=== PATIENT | female | born 1945 | race Asian ===

== ENCOUNTER 2023-01-06 10:05 | Inpatient (IN) | payer OTHER ==
[~2023-01-06] VITALS: Ht 154.9 cm; Wt 57.5 kg
[2023-01-06] MEDS ORDERED: methylPREDNISolone SOD SUCC 40 MG/ML VL IV ONE (10:15)
[2023-01-06] MEDS ORDERED: ALBUTEROL SULF 2.5 MG/0.5ML(0.5%) NEB SOLN NEB ONE (10:15)
[2023-01-06 11:06] LABS: Basophils # (auto) 0 10 ^3/uL (0-0.2); Basophils % (auto) 0.4 % (0.0-2.0); Eosinophils # (auto) 0.1 10 ^3/uL (0-0.8); Eosinophils % (auto) 1.1 % (0.0-7.0); Hematocrit 41.2 % (36.0-46.0); Hemoglobin 13.3 g/dL (12.2-16.2); Lymphocytes # (auto) 1.8 10 ^3/uL (0.4-5.4); Lymphocytes % (auto) 19.6 % (10.0-50.0); Mean Corpuscular Hemoglobin 29.2 pg (28.0-32.0); Mean Corpuscular Hgb Conc. 32.2 g/dL (32.0-36.0); Mean Corpuscular Volume 90.8 fL (80.0-100.0); Monocytes # (auto) 0.5 10 ^3/uL (0-1.3); Monocytes % (auto) 5.3 % (0.0-12.0); Neutrophils # (auto) 6.8 10 ^3/uL (1.6-8.6); Neutrophils % (auto) 73.6 % (37.0-80.0); Red Blood Cells 4.54 10^6/uL (4.0-5.20); Red Cell Distribution Width 13.2 % (11.8-14.3); White Blood Cell 9.3 10^3/uL (4.4-10.8)
[2023-01-06 11:24] LABS: Alanine Aminotransferase 13 U/L (7-40); Alkaline Phosphatase 55 U/L (46-116); Anion Gap 12 (5-15); Aspartate Aminotransferase 22 U/L (13-40); Blood Urea Nitrogen 21 mg/dL (9-23); Calcium 9.2 mg/dL (8.7-10.4); Carbon Dioxide 22 mmol/L (20-30); Chloride 109 mmol/L (98-107); Glucose 131 mg/dL (74-106); Potassium 3.8 mmol/L (3.5-5.1); Sodium 143 mmol/L (136-145)
[2023-01-06 11:25] LABS: Albumin 4.4 g/dL (3.2-4.8); Bilirubin, Total 0.4 mg/dL (0.2-1.0); Total Protein 7.2 g/dL (5.7-8.2)
[2023-01-06 11:40] VITALS: PULSE 108; RESP 25; O2SAT 99
[2023-01-06] MEDS ORDERED: ASPirin 325 MG TAB PO ONE (11:45)
[2023-01-06] MEDS ORDERED: ENOXAPARIN SOD 60 MG/0.6 ML SYRINGE SC ONE (11:45)
[2023-01-06] MEDS ORDERED: IOHEXOL 350 MG/ML 100ML IJ ONE (11:58)
[2023-01-06] MEDS ORDERED: ASPirin 81 mg TAB PO ONE (15:00)
[2023-01-06] MEDS ORDERED: FUROSEMIDE 40 MG/4 ML VIAL IV ONE (15:00)
[2023-01-06] MEDS ORDERED: ATORVASTATIN 20 MG TAB PO ONE (15:00)
[2023-01-06] MEDS ORDERED: METOPROLOL TARTRATE 1MG/1ML-5ML VIAL IV ONE (17:15)
[2023-01-06] MEDS ORDERED: MORPHINE SULFATE 4 MG/ML SYR/VIAL IV PRN (17:45)
[2023-01-06] MEDS ORDERED: ONDANSETRON HCL 4 MG/2 ML VIAL IV PRN (17:45)
[2023-01-06] MEDS ORDERED: ACETAMINOPHEN 325 MG TAB PO PRN (17:45)
[2023-01-06] MEDS ORDERED: NITROGLYCERIN 0.4 MG SL TAB SL PRN (17:45)
[2023-01-06] MEDS ORDERED: DIGOXIN 0.25 MG TAB PO ONE (17:45)
[2023-01-06] MEDS: FUROSEMIDE 20 MG/2 ML VIAL IV SCH (18:00)
[2023-01-06 18:56] LABS: Urine Bacteria NONE SEEN /hpf (None Seen); Urine Blood TRACE /uL (Negative); Urine Clarity Clear (Clear); Urine Color Yellow (Yellow); Urine Mucus FEW (None Seen); Urine Protein, UAD 2+ (Negative); Urine Urobilinogen Normal (Negative); Urine WBC 4 /hpf (0 - 5); Urine pH 5.5 (5.0-8.0)
[2023-01-06 19:05] LABS: INR 1.03 (0.9-1.15); Prothrombin Time 10.8 sec (9.3-11.8)
[2023-01-06 19:23] VITALS: PULSE 88; RESP 19; O2SAT 98
[2023-01-06 21:47] VITALS: BP 115/58; PULSE 96; RESP 19; TEMP 98; O2SAT 98
[2023-01-06] MEDS ORDERED: ENOXAPARIN SOD 60 MG/0.6 ML SYRINGE SC SCH (22:00)
[2023-01-06] MEDS: METOPROLOL TARTRATE 25 MG TAB PO SCH (22:19)
[2023-01-06] MEDS: ATORVASTATIN 20 MG TAB PO SCH (22:19)
[2023-01-06] MEDS: ENOXAPARIN SOD 60 MG/0.6 ML SYRINGE SC SCH (22:20)
[2023-01-06 22:25] VITALS: BP 115/58; PULSE 96; RESP 19; TEMP 98; O2SAT 98
[2023-01-07] VITALS (8 sets, daily range): BP systolic 85–109; BP diastolic 45–62; PULSE 70–81; RESP 16–18; TEMP 97.6–98.8; O2SAT 98–99
[2023-01-07] MEDS ORDERED: ATOR10TA PO (00:23)
[2023-01-07] MEDS ORDERED: SACU1TAB PO (00:23)
[2023-01-07] MEDS ORDERED: DIGO0.12 PO (00:23)
[2023-01-07] MEDS ORDERED: ISOS10TA5 PO (00:23)
[2023-01-07] MEDS ORDERED: METO25TA5 PO (00:23)
[2023-01-07] MEDS ORDERED: FURO1TAB33 PO (00:23)
[2023-01-07] MEDS ORDERED: SPIR50TA5 PO (00:23)
[2023-01-07] MEDS ORDERED: CLOP75TA70 PO (00:23)
[2023-01-07] MEDS: FUROSEMIDE 20 MG/2 ML VIAL IV SCH (06:30)
[2023-01-07] MEDS: DIGOXIN 0.25 MG TAB PO SCH (09:24)
[2023-01-07] MEDS: DOCUSATE SOD 100 MG CAP PO SCH (09:24)
[2023-01-07] MEDS: ENOXAPARIN SOD 60 MG/0.6 ML SYRINGE SC SCH ×2 (09:24→22:00)
[2023-01-07] MEDS: ASPirin 81 mg TAB PO SCH (09:25)
[2023-01-07] MEDS: METOPROLOL TARTRATE 25 MG TAB PO SCH ×2 (09:25→22:02)
[2023-01-07 11:38] LABS: Triglycerides 148 mg/dL (< 150)
[2023-01-07 11:39] LABS: LDL Cholesterol 95 mg/dL (< 100)
[2023-01-07 11:40] LABS: Cholesterol 143 mg/dL (< 200); HDL Cholesterol 41 mg/dL (40-59)
[2023-01-07] MEDS: ATORVASTATIN 20 MG TAB PO SCH (22:00)
[2023-01-08] VITALS (12 sets, daily range): BP systolic 105–134; BP diastolic 50–76; PULSE 74–96; RESP 19–24; TEMP 97.6–98.7; O2SAT 95–100
[2023-01-08] MEDS ORDERED: ALBUTEROL SULF 2.5 MG/0.5ML(0.5%) NEB SOLN NEB PRN (03:30)
[2023-01-08 05:38] LABS: Chloride 106 mmol/L (98-107); Sodium 139 mmol/L (136-145)
[2023-01-08 05:39] LABS: Anion Gap 6 (5-15); Calcium 9.7 mg/dL (8.7-10.4); Carbon Dioxide 27 mmol/L (20-30)
[2023-01-08 05:44] LABS: BUN/Creatinine Ratio 40.6 (10.0-20.0); Blood Urea Nitrogen 28 mg/dL (9-23); Glucose 117 mg/dL (74-106)
[2023-01-08] MEDS ORDERED: FUROSEMIDE 20 MG/2 ML VIAL IV ONE (06:30)
[2023-01-08] MEDS: DOCUSATE SOD 100 MG CAP PO SCH (09:28)
[2023-01-08] MEDS: METOPROLOL TARTRATE 25 MG TAB PO SCH ×2 (09:28→21:45)
[2023-01-08] MEDS: CLOPIDOGREL BISULFATE 75 MG TAB PO SCH (09:29)
[2023-01-08] MEDS: ASPirin 81 mg TAB PO SCH (09:29)
[2023-01-08] MEDS: DIGOXIN 0.25 MG TAB PO SCH (09:29)
[2023-01-08] MEDS: ENOXAPARIN SOD 60 MG/0.6 ML SYRINGE SC SCH ×2 (09:30→21:45)
[2023-01-08] MEDS: PATIENTS OWN MEDICATION (Atorvastatin Calcium (Lipitor) 10 MG) PO SCH (09:31)
[2023-01-08] MEDS ORDERED: FUROSEMIDE 20 MG TAB PO SCH (10:00)
[2023-01-08 17:29] LABS: Free T3 2.35 pg/mL (2.3-4.2); Free T4 (Free Thyroxine) 1.31 ng/dL (0.89-1.76)
[2023-01-08 19:32] LABS: Base Excess 5.1 mmol/L (-2.0-2.0)
[2023-01-08] MEDS: ATORVASTATIN 20 MG TAB PO SCH (21:44)
[2023-01-09] VITALS (12 sets, daily range): BP systolic 98–114; BP diastolic 53–60; PULSE 67–84; RESP 16–18; TEMP 97.5–98.6; O2SAT 95–99
[2023-01-09] MEDS: DIGOXIN 0.25 MG TAB PO SCH (09:32)
[2023-01-09] MEDS: METOPROLOL TARTRATE 25 MG TAB PO SCH ×2 (09:32→22:02)
[2023-01-09] MEDS: DOCUSATE SOD 100 MG CAP PO SCH (09:32)
[2023-01-09] MEDS: CLOPIDOGREL BISULFATE 75 MG TAB PO SCH (09:32)
[2023-01-09] MEDS: ASPirin 81 mg TAB PO SCH (09:32)
[2023-01-09] MEDS: ENOXAPARIN SOD 60 MG/0.6 ML SYRINGE SC SCH ×2 (09:33→22:06)
[2023-01-09] MEDS: FUROSEMIDE 20 MG/2 ML VIAL IV SCH (09:33)
[2023-01-09] MEDS: PATIENTS OWN MEDICATION (Atorvastatin Calcium (Lipitor) 10 MG) PO SCH (09:39)
[2023-01-09] MEDS: ATORVASTATIN 20 MG TAB PO SCH (21:56)
[2023-01-10 05:00] VITALS: BP 104/64; PULSE 71; RESP 18; TEMP 97.5; O2SAT 97
[2023-01-10 06:10] VITALS: O2SAT 96
[2023-01-10] MEDS: ENOXAPARIN SOD 60 MG/0.6 ML SYRINGE SC SCH (09:30)
[2023-01-10] MEDS: DOCUSATE SOD 100 MG CAP PO SCH (09:30)
[2023-01-10] MEDS: DIGOXIN 0.25 MG TAB PO SCH (09:31)
[2023-01-10] MEDS: CLOPIDOGREL BISULFATE 75 MG TAB PO SCH (09:31)
[2023-01-10] MEDS: ASPirin 81 mg TAB PO SCH (09:31)
[2023-01-10] MEDS: METOPROLOL TARTRATE 25 MG TAB PO SCH (09:32)
[2023-01-10] MEDS: FUROSEMIDE 20 MG/2 ML VIAL IV SCH (09:32)
[2023-01-10] MEDS: PATIENTS OWN MEDICATION (Atorvastatin Calcium (Lipitor) 10 MG) PO SCH (09:33)
[2023-01-10 10:00] VITALS: O2SAT 97
[2023-01-10 13:00] VITALS: BP 93/52; PULSE 76; RESP 18; TEMP 97.6; O2SAT 94
[2023-01-10 15:13] VITALS: BP 116/53; PULSE 79; TEMP 36.4
[2023-01-10 16:34] VITALS: BP 101/54; PULSE 72; RESP 16; TEMP 98; O2SAT 96
== END 2023-01-10 18:30 | disposition home or self-care (01) | DRG 280 ==
LOC: EDBD 10:05 → ER 10:05 → TELE 17:53 → TELE-WESTW 21:43
PROVIDERS: ADMIT Nurse Practitioner Family; ATTEND Nurse Practitioner Acute Care
DX: I11.0 Hypertensive heart disease with heart failure (principal); I21.A1 Myocardial infarction type 2; I50.43 Acute on chronic combined systolic (congestive) and diastolic (congestive) heart failure; J96.01 Acute respiratory failure with hypoxia; E07.9 Disorder of thyroid, unspecified; E78.5 Hyperlipidemia, unspecified; I48.91 Unspecified atrial fibrillation; I25.2 Old myocardial infarction; G47.30 Sleep apnea, unspecified
CPT/HCPCS: 36415; 36600; 71045; 71046; 71275; 76536; 80048; 80053; 80061; 80162; 81001; 82805; 83735; 83880; 84439; 84443; 84481; 84484; 85025; 85379; 85610; 93005; 93306; 94640; 96372; 96374; 96375; 99291; G0378

== ENCOUNTER 2023-06-04 20:02 | Emergency (ER) | payer MEDICAID, OTHER ==
[~2023-06-04] VITALS: Ht 154.9 cm; Wt 55.0 kg
[~2023-06-04 20:02] MED LIST: ATOR10TA PO; CLOP75TA70 PO; DIGO0.12 PO; FURO1TAB33 PO; ISOS10TA5 PO; METO25TA5 PO; SACU1TAB PO; SPIR50TA5 PO
[2023-06-04 20:32] VITALS: BP 130/63; RESP 18; O2SAT 96
[2023-06-04 20:36] VITALS: PULSE 94
[2023-06-04] MEDS ORDERED: DIGO0.12 PO (22:09)
[2023-06-04] MEDS ORDERED: METO25TA5 PO (22:09)
[2023-06-04] MEDS ORDERED: FURO1TAB33 PO (22:09)
[2023-06-04] MEDS ORDERED: SACU1TAB PO (22:09)
[2023-06-04] MEDS ORDERED: ISOS10TA5 PO (22:09)
[2023-06-04] MEDS ORDERED: ATOR10TA PO (22:09)
[2023-06-04] MEDS ORDERED: CLOP75TA70 PO (22:09)
== END 2023-06-05 02:35 | disposition home or self-care (01) ==
LOC: ER 20:02
DX: I50.9 Heart failure, unspecified (principal); I25.2 Old myocardial infarction; Z76.0 Encounter for issue of repeat prescription
CPT/HCPCS: 93005

== ENCOUNTER 2023-09-28 12:05 | Inpatient (IN) | payer MEDICAID, OTHER ==
[~2023-09-28] VITALS: Ht 162.6 cm; Wt 57.2 kg
[~2023-09-28 12:05] MED LIST changes: -ISOS10TA5 PO; +ISOS40TA18 PO
[2023-09-28 13:09] LABS: Basophils # (auto) 0 10 ^3/uL (0-0.2); Basophils % (auto) 0.5 % (0.0-2.0); Eosinophils # (auto) 0.1 10 ^3/uL (0-0.8); Eosinophils % (auto) 1.2 % (0.0-7.0); Hematocrit 37.5 % (36.0-46.0); Hemoglobin 12.3 g/dL (12.2-16.2); Lymphocytes # (auto) 1.7 10 ^3/uL (0.4-5.4); Lymphocytes % (auto) 23.1 % (10.0-50.0); Mean Corpuscular Hemoglobin 29.3 pg (28.0-32.0); Mean Corpuscular Hgb Conc. 32.8 g/dL (32.0-36.0); Mean Corpuscular Volume 89.1 fL (80.0-100.0); Monocytes # (auto) 0.6 10 ^3/uL (0-1.3); Monocytes % (auto) 7.9 % (0.0-12.0); Neutrophils # (auto) 4.8 10 ^3/uL (1.6-8.6); Neutrophils % (auto) 67.3 % (37.0-80.0); Nucleated Red Blood Cells % 0.1 %; Red Blood Cells 4.21 10^6/uL (4.0-5.20); Red Cell Distribution Width 13.9 % (11.8-14.3); White Blood Cell 7.2 10^3/uL (4.4-10.8)
[2023-09-28] MEDS: IPRATROPIUM BROM 0.5 MG/2.5ML INH SOL NEB ONE (13:15)
[2023-09-28] MEDS: ALBUTEROL SULF 2.5 MG/0.5ML(0.5%) NEB SOLN NEB ONE (13:15)
[2023-09-28] MEDS: BUDESONIDE (INHALATION) 0.5 MG/2 ML NEB NEB ONE (13:15)
[2023-09-28 13:25] LABS: INR 1.08 (0.9-1.15); Partial Thromboplastin Time 25.1 SEC (24.5-34.5); Prothrombin Time 11.4 sec (9.3-11.8)
[2023-09-28 13:39] LABS: Base Excess 0.2 mmol/L (-2.0-2.0)
[2023-09-28 13:46] LABS: Alanine Aminotransferase 24 U/L (7-40); Albumin 4.2 g/dL (3.2-4.8); Alkaline Phosphatase 56 U/L (46-116); Anion Gap 7 (5-15); Aspartate Aminotransferase 48 U/L (13-40); BUN/Creatinine Ratio 36.4 (10.0-20.0); Blood Urea Nitrogen 20 mg/dL (9-23); Calcium 9.2 mg/dL (8.5-10.1); Carbon Dioxide 27 mmol/L (20-30); Chloride 109 mmol/L (98-107); Glucose 107 mg/dL (74-106); Potassium 3.5 mmol/L (3.5-5.1); Sodium 143 mmol/L (136-145)
[2023-09-28 13:47] LABS: Bilirubin, Total 0.9 mg/dL (0.2-1.0); Total Protein 6.6 g/dL (5.7-8.2)
[2023-09-28] MEDS: IOHEXOL 350 MG/ML 100ML IJ ONE (15:09)
[2023-09-28] MEDS: DexAMETHasone SOD PHOS 10MG/1ML VIAL INJ IV ONE (16:00)
[2023-09-28] MEDS: ENOXAPARIN SOD 60 MG/0.6 ML SYRINGE SC ONE (16:01)
[2023-09-28 17:22] LABS: Magnesium 1.9 mg/dL (1.6-2.6)
[2023-09-28] MEDS: FUROSEMIDE 20 MG/2 ML VIAL IV SCH (18:39)
[2023-09-28] MEDS: POTASSIUM EFFERVESENT TAB 25 MEQ PO ONE (18:39)
[2023-09-28 19:03] LABS: Rapid Influenza A Negative (Negative); Rapid Influenza B Negative (Negative)
[2023-09-28 19:04] LABS: COVID19 ANTIGEN SOFIA FIA NEGATIVE (NEGATIVE)
[2023-09-28 21:19] VITALS: PULSE 85; RESP 20; O2SAT 96
[2023-09-28] MEDS ORDERED: ATORVASTATIN 20 MG TAB PO SCH ×2 (22:00)
[2023-09-28 22:50] VITALS: BP 126/63; PULSE 84; RESP 17; TEMP 97.4; O2SAT 97
[2023-09-28] MEDS: ATORVASTATIN 20 MG TAB PO SCH (23:25)
[2023-09-28] MEDS: APIXABAN 2.5 MG TAB PO SCH (23:25)
[2023-09-28] MEDS: AMIODARONE HCL 200 MG TAB PO SCH (23:25)
[2023-09-28] MEDS: METOPROLOL TARTRATE 25 MG TAB PO SCH (23:26)
[2023-09-28] MEDS: SACUBITRIL-VALSARTAN 24mg/26mg TAB PO SCH (23:26)
[2023-09-29] VITALS (7 sets, daily range): BP systolic 100–120; BP diastolic 46–68; PULSE 66–80; RESP 16–18; TEMP 96.9–98.4; O2SAT 92–98
[2023-09-29 06:27] LABS: Basophils # (auto) 0 10 ^3/uL (0-0.2); Basophils % (auto) 0.2 % (0.0-2.0); Eosinophils # (auto) 0 10 ^3/uL (0-0.8); Hematocrit 38.3 % (36.0-46.0); Hemoglobin 12.7 g/dL (12.2-16.2); Lymphocytes # (auto) 0.7 10 ^3/uL (0.4-5.4); Lymphocytes % (auto) 12.9 % (10.0-50.0); Mean Corpuscular Hemoglobin 29.6 pg (28.0-32.0); Mean Corpuscular Hgb Conc. 33.2 g/dL (32.0-36.0); Mean Corpuscular Volume 89.1 fL (80.0-100.0); Monocytes # (auto) 0.1 10 ^3/uL (0-1.3); Monocytes % (auto) 2.1 % (0.0-12.0); Neutrophils # (auto) 4.5 10 ^3/uL (1.6-8.6); Neutrophils % (auto) 84.8 % (37.0-80.0); Red Cell Distribution Width 13.7 % (11.8-14.3); White Blood Cell 5.3 10^3/uL (4.4-10.8)
[2023-09-29 06:32] LABS: Alanine Aminotransferase 18 U/L (7-40); Albumin 4.1 g/dL (3.2-4.8); Alkaline Phosphatase 53 U/L (46-116); Anion Gap 11 (5-15); Aspartate Aminotransferase 24 U/L (13-40); BUN/Creatinine Ratio 28.3 (10.0-20.0); Bilirubin, Total 1.2 mg/dL (0.2-1.0); Blood Urea Nitrogen 15 mg/dL (9-23); Calcium 9.7 mg/dL (8.7-10.4); Carbon Dioxide 28 mmol/L (20-30); Chloride 104 mmol/L (98-107); Glucose 161 mg/dL (74-106); Potassium 3.9 mmol/L (3.5-5.1); Sodium 143 mmol/L (136-145); Total Protein 6.9 g/dL (5.7-8.2)
[2023-09-29] MEDS: EMPAGLIFLOZIN 10 MG TAB PO SCH (09:38)
[2023-09-29] MEDS: SPIRONOLACTONE 25 MG TAB PO SCH (09:38)
[2023-09-29] MEDS: CLOPIDOGREL BISULFATE 75 MG TAB PO SCH (09:38)
[2023-09-29] MEDS ORDERED: DIGOXIN 0.125 MG TAB PO SCH (10:00)
[2023-09-29] MEDS ORDERED: ISOSORBIDE DINITRATE 10 MG TAB PO SCH (10:00)
[2023-09-29] MEDS ORDERED: SPIRONOLACTONE 25 MG TAB PO SCH (10:00)
[2023-09-30] VITALS (8 sets, daily range): BP systolic 93–111; BP diastolic 40–68; PULSE 64–72; RESP 17–20; TEMP 97.4–98.7; O2SAT 94–100
[2023-09-30] MEDS ORDERED: diphenhdrAMINE HCL 50 MG/1 ML VL IV PRN (13:30)
[2023-10-01] VITALS (8 sets, daily range): BP systolic 103–136; BP diastolic 52–77; PULSE 64–79; RESP 15–18; TEMP 97.4–98.3; O2SAT 94–98
[2023-10-01 09:06] LABS: Hepatitis B Surface Antigen Negative (Negative)
[2023-10-01 09:27] LABS: Hepatitis C Antibody Negative (Negative)
[2023-10-01] MEDS ORDERED: FURO1TAB31 PO (11:38)
[2023-10-01] MEDS ORDERED: AMIO200T13 PO (11:38)
[2023-10-01] MEDS ORDERED: APIX2.5T PO (11:38)
[2023-10-02] VITALS (9 sets, daily range): BP systolic 89–127; BP diastolic 44–67; PULSE 62–75; RESP 16–18; TEMP 36.8; O2SAT 94–99
[2023-10-03 00:49] VITALS: BP 102/43; PULSE 66; RESP 14; TEMP 97.9; O2SAT 100
[2023-10-03 05:00] VITALS: BP 103/68; PULSE 61; RESP 14; TEMP 98.1; O2SAT 99
== END 2023-10-03 08:00 | disposition home or self-care (01) | DRG 133 ==
LOC: ER 12:05 → EDUNIT# 12:05 → EDBD 12:05 → TELE 16:01 → EDBD 16:01 → TELE-WESTW 22:42
PROVIDERS: ADMIT Internal Medicine; ATTEND Internal Medicine
DX: J96.01 Acute respiratory failure with hypoxia (principal); I21.A1 Myocardial infarction type 2; I50.23 Acute on chronic systolic (congestive) heart failure; I42.0 Dilated cardiomyopathy; I24.9 Acute ischemic heart disease, unspecified; I11.0 Hypertensive heart disease with heart failure; E78.5 Hyperlipidemia, unspecified; E03.9 Hypothyroidism, unspecified; G47.30 Sleep apnea, unspecified; I25.10 Atherosclerotic heart disease of native coronary artery without angina pectoris; I48.0 Paroxysmal atrial fibrillation; I48.20 Chronic atrial fibrillation, unspecified; I25.2 Old myocardial infarction; Z98.61 Coronary angioplasty status; Z99.81 Dependence on supplemental oxygen
CPT/HCPCS: 36415; 36600; 71045; 71275; 80053; 80061; 80162; 82805; 83036; 83735; 83880; 84443; 84484; 85025; 85379; 85610; 85730; 86803; 87340; 87426; 87804; 93005; 93306; 94640; 96372; 96374; G0378; J1100

== ENCOUNTER 2023-12-22 10:59 | Inpatient (IN) | payer OTHER ==
[~2023-12-22] VITALS: Ht 152.4 cm; Wt 58.9 kg
[~2023-12-22 10:59] MED LIST changes: +AMIO200T13 PO; +APIX2.5T PO; +FURO1TAB31 PO; -FURO1TAB33 PO
[2023-12-22 11:45] LABS: Basophils # (auto) 0.1 10 ^3/uL (0-0.2); Basophils % (auto) 1.2 % (0.0-2.0); Eosinophils # (auto) 0.1 10 ^3/uL (0-0.8); Eosinophils % (auto) 1.6 % (0.0-7.0); Hematocrit 38.5 % (36.0-46.0); Hemoglobin 13.3 g/dL (12.2-16.2); Lymphocytes # (auto) 1.3 10 ^3/uL (0.4-5.4); Lymphocytes % (auto) 19.8 % (10.0-50.0); Mean Corpuscular Hemoglobin 30.6 pg (28.0-32.0); Mean Corpuscular Hgb Conc. 34.4 g/dL (32.0-36.0); Mean Corpuscular Volume 88.9 fL (80.0-100.0); Monocytes # (auto) 0.6 10 ^3/uL (0-1.3); Monocytes % (auto) 9.2 % (0.0-12.0); Neutrophils # (auto) 4.5 10 ^3/uL (1.6-8.6); Neutrophils % (auto) 68.2 % (37.0-80.0); Platelet Count (auto) 198 10^3/uL (140-450); Red Blood Cells 4.33 10^6/uL (4.0-5.20); Red Cell Distribution Width 12.9 % (11.8-14.3); White Blood Cell 6.5 10^3/uL (4.4-10.8)
[2023-12-22 12:22] LABS: Alanine Aminotransferase 19 U/L (7-40); Alkaline Phosphatase 68 U/L (46-116); Calcium 9.6 mg/dL (8.7-10.4); Carbon Dioxide 29 mmol/L (20-30); Chloride 104 mmol/L (98-107); Glucose 136 mg/dL (74-106)
[2023-12-22 12:23] LABS: Albumin 4.2 g/dL (3.2-4.8); Anion Gap 8 (5-15); Aspartate Aminotransferase 34 U/L (13-40); BUN/Creatinine Ratio 22.2 (10.0-20.0); Bilirubin, Total 0.9 mg/dL (0.2-1.0); Blood Urea Nitrogen 16 mg/dL (9-23); Sodium 141 mmol/L (136-145)
[2023-12-22 12:47] VITALS: PULSE 70; RESP 18; O2SAT 95
[2023-12-22] MEDS: POTASSIUM EFFERVESENT TAB 25 MEQ PO ONE (12:47)
[2023-12-22 13:43] LABS: Urine Bacteria None Seen /hpf (None Seen)
[2023-12-22 14:01] LABS: Urine Blood Negative /uL (Negative); Urine Clarity Turbid (Clear); Urine Color Yellow (Yellow); Urine Hyaline Cast FEW /lpf (0 - 2); Urine Mucus FEW (None Seen); Urine Protein, UAD 1+ (Negative); Urine Specific Gravity 1.024 (1.001-1.035); Urine Urobilinogen Normal (Negative); Urine WBC 3 /hpf (0 - 5); Urine pH 5.5 (5.0-9.0)
[2023-12-22] MEDS ORDERED: NITROGLYCERIN 0.4 MG SL TAB SL PRN (14:15)
[2023-12-22] MEDS ORDERED: MORPHINE SULFATE INJ 2 MG/ml SYRG IV PRN (14:15)
[2023-12-22] MEDS ORDERED: ENOXAPARIN SOD 40 MG/0.4 ML SYRINGE SC SCH (14:15)
[2023-12-22] MEDS ORDERED: DOCUSATE SOD 100 MG CAP PO PRN (14:15)
[2023-12-22] MEDS ORDERED: ONDANSETRON HCL 4 MG/2 ML VIAL IV PRN (14:15)
[2023-12-22 15:05] LABS: Phosphorus 3.7 mg/dL (2.4-5.1)
[2023-12-22 18:00] VITALS: BP 123/60; PULSE 66; RESP 12; O2SAT 90
[2023-12-22] MEDS: FUROSEMIDE 40 MG/4 ML VIAL IV SCH (18:00)
[2023-12-22 20:00] VITALS: PULSE 68
[2023-12-22] MEDS: APIXABAN 2.5 MG TAB PO SCH (22:00)
[2023-12-22] MEDS ORDERED: AMIODARONE HCL 200 MG TAB PO SCH (22:00)
[2023-12-22] MEDS: ATORVASTATIN 20 MG TAB PO SCH (22:00)
[2023-12-22] MEDS: SACUBITRIL-VALSARTAN 24mg/26mg TAB PO SCH (22:00)
[2023-12-22] MEDS: METOPROLOL TARTRATE 25 MG TAB PO SCH (22:00)
[2023-12-23] VITALS (8 sets, daily range): BP systolic 112–126; BP diastolic 42–72; PULSE 62–78; RESP 16–20; TEMP 97.8–98.5; O2SAT 93–100
[2023-12-23] MEDS: ENOXAPARIN SOD 100 MG/1 ML SYRINGE SC ONE (00:01)
[2023-12-23] MEDS: methylPREDNISolone SOD SUCC 40 MG/ML VL IV SCH (00:02)
[2023-12-23 06:09] LABS: Basophils # (auto) 0 10 ^3/uL (0-0.2); Basophils % (auto) 0.5 % (0.0-2.0); Eosinophils # (auto) 0 10 ^3/uL (0-0.8); Eosinophils % (auto) 0.1 % (0.0-7.0); Hematocrit 36.4 % (36.0-46.0); Hemoglobin 12.6 g/dL (12.2-16.2); Lymphocytes # (auto) 0.9 10 ^3/uL (0.4-5.4); Lymphocytes % (auto) 18.1 % (10.0-50.0); Mean Corpuscular Hemoglobin 30.1 pg (28.0-32.0); Mean Corpuscular Hgb Conc. 34.4 g/dL (32.0-36.0); Mean Corpuscular Volume 87.4 fL (80.0-100.0); Monocytes # (auto) 0.1 10 ^3/uL (0-1.3); Monocytes % (auto) 1.4 % (0.0-12.0); Neutrophils # (auto) 3.9 10 ^3/uL (1.6-8.6); Neutrophils % (auto) 79.9 % (37.0-80.0); Platelet Count (auto) 187 10^3/uL (140-450); Red Blood Cells 4.17 10^6/uL (4.0-5.20); Red Cell Distribution Width 12.7 % (11.8-14.3); White Blood Cell 4.8 10^3/uL (4.4-10.8)
[2023-12-23 06:26] LABS: Alanine Aminotransferase 19 U/L (7-40); Albumin 4.1 g/dL (3.2-4.8); Alkaline Phosphatase 66 U/L (46-116); Anion Gap 7 (5-15); Aspartate Aminotransferase 33 U/L (13-40); BUN/Creatinine Ratio 25.4 (10.0-20.0); Blood Urea Nitrogen 17 mg/dL (9-23); Calcium 9.9 mg/dL (8.7-10.4); Carbon Dioxide 29 mmol/L (20-30); Chloride 104 mmol/L (98-107); Glucose 155 mg/dL (74-106); Potassium 3.6 mmol/L (3.5-5.1); Sodium 140 mmol/L (136-145)
[2023-12-23 06:27] LABS: Bilirubin, Total 0.9 mg/dL (0.2-1.0); Total Protein 6.8 g/dL (5.7-8.2)
[2023-12-23] MEDS: DIGOXIN 0.125 MG TAB PO SCH (10:00)
[2023-12-23] MEDS: CLOPIDOGREL BISULFATE 75 MG TAB PO SCH (10:00)
[2023-12-23] MEDS: SPIRONOLACTONE 25 MG TAB PO SCH (10:00)
[2023-12-23] MEDS: ISOSORBIDE DINITRATE 10 MG TAB PO SCH (10:00)
[2023-12-23] MEDS ORDERED: SPIRONOLACTONE PO SCH (10:00)
[2023-12-24 01:00] VITALS: BP 112/66; PULSE 81; RESP 18; TEMP 98; O2SAT 96
[2023-12-24] MEDS: diphenhdrAMINE HCL 50 MG/1 ML VL IV ONE (04:56)
[2023-12-24 05:00] VITALS: BP 115/42; PULSE 69; RESP 18; TEMP 98; O2SAT 99
[2023-12-24 08:00] VITALS: PULSE 74; PULSE 78; RESP 15; O2SAT 95
[2023-12-24 09:00] VITALS: BP 112/41; PULSE 70; RESP 15; TEMP 98.5; O2SAT 95
[2023-12-24 12:30] VITALS: BP 115/52; PULSE 70; RESP 15; TEMP 98.5; O2SAT 95
[2023-12-24 13:00] VITALS: BP 96/97; PULSE 71; RESP 15; TEMP 97.8; O2SAT 93
== END 2023-12-24 13:07 | disposition home or self-care (01) | DRG 194 ==
LOC: ER 10:59 → TELE 14:34 → TELE-WESTW 17:50
PROVIDERS: ADMIT Nurse Practitioner Family; ATTEND Nurse Practitioner Family
DX: I11.0 Hypertensive heart disease with heart failure (principal); J96.01 Acute respiratory failure with hypoxia; J98.59 Other diseases of mediastinum, not elsewhere classified; J44.1 Chronic obstructive pulmonary disease with (acute) exacerbation; I48.20 Chronic atrial fibrillation, unspecified; E87.6 Hypokalemia; R13.10 Dysphagia, unspecified; E03.9 Hypothyroidism, unspecified; J98.11 Atelectasis; E11.9 Type 2 diabetes mellitus without complications; I25.10 Atherosclerotic heart disease of native coronary artery without angina pectoris; E78.00 Pure hypercholesterolemia, unspecified; Z79.01 Long term (current) use of anticoagulants; I50.43 Acute on chronic combined systolic (congestive) and diastolic (congestive) heart failure
CPT/HCPCS: 36415; 70490; 71045; 76705; 80053; 80162; 81001; 83735; 84100; 84484; 85025; 92610; 93005; 99291; G0378

== ENCOUNTER 2024-01-05 13:11 | Inpatient (IN) | payer OTHER ==
[~2024-01-05] VITALS: Ht 157.5 cm; Wt 57.6 kg
[2024-01-05 14:00] VITALS: PULSE 70; RESP 26; O2SAT 98
[2024-01-05 14:14] LABS: Basophils # (auto) 0.1 10 ^3/uL (0-0.2); Basophils % (auto) 0.7 % (0.0-2.0); Eosinophils # (auto) 0.2 10 ^3/uL (0-0.8); Eosinophils % (auto) 2.2 % (0.0-7.0); Hematocrit 40.6 % (36.0-46.0); Hemoglobin 13.9 g/dL (12.2-16.2); Lymphocytes # (auto) 1.2 10 ^3/uL (0.4-5.4); Lymphocytes % (auto) 14.8 % (10.0-50.0); Mean Corpuscular Hemoglobin 29.7 pg (28.0-32.0); Mean Corpuscular Hgb Conc. 34.2 g/dL (32.0-36.0); Mean Corpuscular Volume 86.7 fL (80.0-100.0); Monocytes # (auto) 0.9 10 ^3/uL (0-1.3); Monocytes % (auto) 11.5 % (0.0-12.0); Neutrophils # (auto) 5.8 10 ^3/uL (1.6-8.6); Neutrophils % (auto) 70.8 % (37.0-80.0); Nucleated Red Blood Cells % 0.1 %; Platelet Count (auto) 190 10^3/uL (140-450); Red Blood Cells 4.69 10^6/uL (4.0-5.20); Red Cell Distribution Width 13.1 % (11.8-14.3); White Blood Cell 8.1 10^3/uL (4.4-10.8)
[2024-01-05 14:29] LABS: Alanine Aminotransferase 28 U/L (7-40); Albumin 4.3 g/dL (3.2-4.8); Alkaline Phosphatase 57 U/L (46-116); Anion Gap 9 (5-15); Aspartate Aminotransferase 52 U/L (13-40); BUN/Creatinine Ratio 22.2 (10.0-20.0); Blood Urea Nitrogen 16 mg/dL (9-23); Calcium 9.4 mg/dL (8.7-10.4); Carbon Dioxide 27 mmol/L (20-30); Chloride 100 mmol/L (98-107); Glucose 102 mg/dL (74-106); Lipase 55 U/L (12-53); Potassium 2.8 mmol/L (3.5-5.1); Sodium 136 mmol/L (136-145)
[2024-01-05 14:30] LABS: Bilirubin, Total 1.2 mg/dL (0.2-1.0); INR 1.08 (0.9-1.15); Partial Thromboplastin Time 25.9 SEC (24.5-34.5); Prothrombin Time 11.4 sec (9.3-11.8); Total Protein 6.9 g/dL (5.7-8.2)
[2024-01-05] MEDS: SODIUM CHLORIDE 0.9% 1,000 ML IVB ONE (15:41)
[2024-01-05] MEDS: ONDANSETRON HCL 4 MG/2 ML VIAL IV ONE (15:41)
[2024-01-05] MEDS: MORPHINE SULFATE 4 MG/ML SYR/VIAL IV ONE (15:43)
[2024-01-05] MEDS: D5W/SOD CHL 0.45%/KCL 20MEQ 1,000 ML IV ONE (16:57)
[2024-01-05] MEDS: IOHEXOL 300 MG/ML 100ML BOTTLE IJ ONE (18:04)
[2024-01-05 19:30] VITALS: PULSE 63; RESP 20; O2SAT 95
[2024-01-05] MEDS ORDERED: DOCUSATE SOD 100 MG CAP PO PRN (21:45)
[2024-01-05] MEDS ORDERED: ACETAMINOPHEN 325 MG TAB PO PRN (21:45)
[2024-01-05] MEDS: SODIUM CHLORIDE 0.9% 1,000 ML IV SCH (21:45)
[2024-01-05] MEDS ORDERED: MORPHINE SULFATE INJ 2 MG/ml SYRG IV PRN ×2 (21:45→22:45)
[2024-01-05] MEDS ORDERED: HYDROcodone-ACET 5/325MG TAB PO PRN (21:45)
[2024-01-05] MEDS ORDERED: ONDANSETRON HCL 4 MG/2 ML VIAL IV PRN (21:45)
[2024-01-05] MEDS: APIXABAN 2.5 MG TAB PO SCH (22:25)
[2024-01-05] MEDS: ATORVASTATIN 20 MG TAB PO SCH (22:25)
[2024-01-05] MEDS: CARVEDILOL 3.125 MG TAB PO SCH (22:26)
[2024-01-05] MEDS: cefTRIAXone 1GM/50ML D5W 50 ML IV ONE (22:30)
[2024-01-05] MEDS ORDERED: NITROGLYCERIN 0.4 MG SL TAB SL PRN (22:45)
[2024-01-05] MEDS: POTASSIUM CHL 20MEQ/100ML 100 ML IV SCH (23:00)
[2024-01-06 04:56] VITALS: PULSE 100; RESP 16; O2SAT 95
[2024-01-06 05:00] VITALS: BP 130/80; PULSE 100; RESP 16; TEMP 98; O2SAT 95
[2024-01-06] MEDS ORDERED: METF-370 PO (05:13)
[2024-01-06 07:16] LABS: Basophils # (auto) 0.1 10 ^3/uL (0-0.2); Basophils % (auto) 0.8 % (0.0-2.0); Eosinophils # (auto) 0.2 10 ^3/uL (0-0.8); Eosinophils % (auto) 2.4 % (0.0-7.0); Hematocrit 33.1 % (36.0-46.0); Hemoglobin 11.4 g/dL (12.2-16.2); Lymphocytes # (auto) 0.9 10 ^3/uL (0.4-5.4); Lymphocytes % (auto) 13.3 % (10.0-50.0); Mean Corpuscular Hemoglobin 30.3 pg (28.0-32.0); Mean Corpuscular Hgb Conc. 34.6 g/dL (32.0-36.0); Mean Corpuscular Volume 87.7 fL (80.0-100.0); Monocytes # (auto) 0.8 10 ^3/uL (0-1.3); Monocytes % (auto) 11.9 % (0.0-12.0); Neutrophils # (auto) 4.7 10 ^3/uL (1.6-8.6); Neutrophils % (auto) 71.6 % (37.0-80.0); Nucleated Red Blood Cells % 0.1 %; Platelet Count (auto) 154 10^3/uL (140-450); Red Blood Cells 3.77 10^6/uL (4.0-5.20); Red Cell Distribution Width 13.3 % (11.8-14.3); White Blood Cell 6.5 10^3/uL (4.4-10.8)
[2024-01-06 07:30] VITALS: PULSE 57; RESP 16; O2SAT 94
[2024-01-06 07:40] LABS: Alanine Aminotransferase 22 U/L (7-40); Albumin 3.2 g/dL (3.2-4.8); Alkaline Phosphatase 42 U/L (46-116); Anion Gap 11 (5-15); Aspartate Aminotransferase 40 U/L (13-40); BUN/Creatinine Ratio 22.9 (10.0-20.0); Bilirubin, Total 0.7 mg/dL (0.2-1.0); Blood Urea Nitrogen 11 mg/dL (9-23); Calcium 8.2 mg/dL (8.7-10.4); Carbon Dioxide 20 mmol/L (20-30); Glucose 111 mg/dL (74-106); Potassium 3.4 mmol/L (3.5-5.1); Sodium 142 mmol/L (136-145)
[2024-01-06 07:41] LABS: Total Protein 5.1 g/dL (5.7-8.2)
[2024-01-06 07:48] LABS: Chloride 111 mmol/L (98-107)
[2024-01-06 08:00] VITALS: PULSE 57
[2024-01-06] MEDS: FUROSEMIDE 20 MG/2 ML VIAL IV SCH (10:00)
[2024-01-06] MEDS: PANTOPRAZOLE 40 MG/10 ML VIAL INJ IV SCH (10:00)
[2024-01-06] MEDS: POTASSIUM CHL 20MEQ/100ML 100 ML IV ONE (17:45)
[2024-01-06 20:00] VITALS: PULSE 59; O2SAT 94
[2024-01-06] MEDS: cefTRIAXone 1GM/50ML D5W 50 ML IV SCH (20:44)
[2024-01-06 21:00] VITALS: BP 143/70; PULSE 54; RESP 16; TEMP 98; O2SAT 96
[2024-01-07] VITALS (9 sets, daily range): BP systolic 115–141; BP diastolic 43–71; PULSE 52–76; RESP 16–24; TEMP 97.1–98.5; O2SAT 92–99
[2024-01-07 08:50] LABS: Chloride 112 mmol/L (98-107); Potassium 3.7 mmol/L (3.5-5.1); Sodium 143 mmol/L (136-145)
[2024-01-07 08:51] LABS: Anion Gap 11 (5-15); Basophils # (auto) 0.1 10 ^3/uL (0-0.2); Basophils % (auto) 1.4 % (0.0-2.0); Calcium 9.4 mg/dL (8.7-10.4); Carbon Dioxide 20 mmol/L (20-30); Eosinophils # (auto) 0.1 10 ^3/uL (0-0.8); Eosinophils % (auto) 1.1 % (0.0-7.0); Hematocrit 39.2 % (36.0-46.0); Lymphocytes # (auto) 1.9 10 ^3/uL (0.4-5.4); Lymphocytes % (auto) 18.6 % (10.0-50.0); Mean Corpuscular Hemoglobin 29.5 pg (28.0-32.0); Mean Corpuscular Hgb Conc. 33.1 g/dL (32.0-36.0); Monocytes # (auto) 1.2 10 ^3/uL (0-1.3); Monocytes % (auto) 11.3 % (0.0-12.0); Neutrophils % (auto) 67.6 % (37.0-80.0); Nucleated Red Blood Cells % 0.1 %; Platelet Count (auto) 196 10^3/uL (140-450); Red Blood Cells 4.41 10^6/uL (4.0-5.20); Red Cell Distribution Width 13.5 % (11.8-14.3); White Blood Cell 10.4 10^3/uL (4.4-10.8)
[2024-01-07 08:56] LABS: Blood Urea Nitrogen 11 mg/dL (9-23); Glucose 155 mg/dL (74-106)
[2024-01-07] MEDS ORDERED: NALOXONE HCL 0.4 MG/ML VIAL ONE (09:58)
[2024-01-07] MEDS ORDERED: FLUMAZENIL 0.1 MG/ML INJ 10ML MDV IV ONE (09:58)
[2024-01-07] MEDS ORDERED: SODIUM CHLORIDE LOCK 10 ML ONE (09:58)
[2024-01-07 12:43] LABS: Urine Bacteria None Seen /hpf (None Seen)
[2024-01-07 13:20] LABS: Urine Blood Negative /uL (Negative); Urine Clarity Clear (Clear); Urine Color Light-Yellow (Yellow); Urine Hyaline Cast MOD /lpf (0 - 2); Urine Mucus FEW (None Seen); Urine Protein, UAD Negative (Negative); Urine Urobilinogen Normal (Negative); Urine WBC 1 /hpf (0 - 5)
[2024-01-07] MEDS: LIDOCAINE VISCOUS 2% 15ML UD ONE (16:15)
[2024-01-07] MEDS: MIDAZOLAM HCL 5 MG/ML-1ML VIAL ONE (16:19)
[2024-01-07] MEDS: fentaNYL CITRATE 100 MCG/2 ML VL ONE (16:19)
[2024-01-07] MEDS: diphenhdrAMINE HCL 50 MG/1 ML VL ONE (16:25)
[2024-01-08] VITALS (8 sets, daily range): BP systolic 112–137; BP diastolic 47–83; PULSE 65–121; RESP 13–23; TEMP 97.5–98.9; O2SAT 95–98
[2024-01-08 07:16] LABS: Basophils # (auto) 0 10 ^3/uL (0-0.2); Basophils % (auto) 0.5 % (0.0-2.0); Eosinophils # (auto) 0 10 ^3/uL (0-0.8); Eosinophils % (auto) 0.5 % (0.0-7.0); Hematocrit 35.2 % (36.0-46.0); Hemoglobin 11.9 g/dL (12.2-16.2); Lymphocytes # (auto) 1.1 10 ^3/uL (0.4-5.4); Lymphocytes % (auto) 12.4 % (10.0-50.0); Mean Corpuscular Hemoglobin 30.1 pg (28.0-32.0); Mean Corpuscular Hgb Conc. 33.9 g/dL (32.0-36.0); Mean Corpuscular Volume 88.7 fL (80.0-100.0); Monocytes # (auto) 0.9 10 ^3/uL (0-1.3); Monocytes % (auto) 9.9 % (0.0-12.0); Neutrophils % (auto) 76.7 % (37.0-80.0); Nucleated Red Blood Cells % 0.1 %; Platelet Count (auto) 149 10^3/uL (140-450); Red Blood Cells 3.97 10^6/uL (4.0-5.20); Red Cell Distribution Width 13.8 % (11.8-14.3); White Blood Cell 9.1 10^3/uL (4.4-10.8)
[2024-01-08 07:24] LABS: Chloride 111 mmol/L (98-107); Potassium 3.2 mmol/L (3.5-5.1); Sodium 143 mmol/L (136-145)
[2024-01-08 07:25] LABS: Anion Gap 8 (5-15); Carbon Dioxide 24 mmol/L (20-30)
[2024-01-08 07:26] LABS: Calcium 8.9 mg/dL (8.7-10.4)
[2024-01-08 07:30] LABS: BUN/Creatinine Ratio 28.6 (10.0-20.0); Blood Urea Nitrogen 12 mg/dL (9-23); Glucose 117 mg/dL (74-106)
[2024-01-08] MEDS: POTASSIUM EFFERVESENT TAB 25 MEQ PO ONE (09:41)
[2024-01-08] MEDS ORDERED: SACUBITRIL-VALSARTAN 24mg/26mg TAB PO SCH (22:00)
[2024-01-08] MEDS ORDERED: AMIODARONE HCL 200 MG TAB PO SCH (22:00)
[2024-01-09] MEDS ORDERED: ASPirin 81 mg TAB PO SCH (10:00)
[2024-01-09] MEDS ORDERED: EMPAGLIFLOZIN 10 MG TAB PO SCH (10:00)
[2024-01-09] MEDS ORDERED: SPIRONOLACTONE 25 MG TAB PO SCH (10:00)
== END 2024-01-08 20:30 | disposition hospice, home (50) | DRG 241 ==
LOC: EDUNIT# 13:11 → ER 13:11 → EDBD 13:11 → TELE 22:46 → TELE-CENTR 01-06 04:35
PROVIDERS: ADMIT Internal Medicine; ATTEND Internal Medicine
PROC: 0DB68ZX Excision of Stomach, Via Natural or Artificial Opening Endoscopic, Diagnostic (ICD-10-PCS; 2024-01-07)
PROC: 0DB98ZX Excision of Duodenum, Via Natural or Artificial Opening Endoscopic, Diagnostic (ICD-10-PCS; principal; 2024-01-07 16:10)
DX: K29.70 Gastritis, unspecified, without bleeding (principal); I50.23 Acute on chronic systolic (congestive) heart failure; E43 Unspecified severe protein-calorie malnutrition; I42.0 Dilated cardiomyopathy; E86.0 Dehydration; A08.4 Viral intestinal infection, unspecified; I11.0 Hypertensive heart disease with heart failure; I48.0 Paroxysmal atrial fibrillation; E04.1 Nontoxic single thyroid nodule; E87.6 Hypokalemia; I25.5 Ischemic cardiomyopathy; E78.5 Hyperlipidemia, unspecified; G47.30 Sleep apnea, unspecified; J44.9 Chronic obstructive pulmonary disease, unspecified; I25.10 Atherosclerotic heart disease of native coronary artery without angina pectoris; R13.10 Dysphagia, unspecified; Z79.899 Other long term (current) drug therapy; Z79.84 Long term (current) use of oral hypoglycemic drugs; Z51.5 Encounter for palliative care; Z98.61 Coronary angioplasty status; Z79.01 Long term (current) use of anticoagulants; Z68.20 Body mass index [BMI] 20.0-20.9, adult
CPT/HCPCS: 36415; 43239; 71045; 74177; 76856; 80048; 80053; 81001; 82306; 82607; 83036; 83690; 83735; 83880; 84439; 84443; 84480; 85025; 85048; 85610; 85730; 86304; 87045; 87081; 87427; 87493; 93005; 97110; 97116; 97163; 97530; G0378; J2250; J2405; J2470; J3480

== ENCOUNTER 2024-03-04 21:42 | Emergency (ER) | payer OTHER ==
[~2024-03-04] VITALS: Ht 152.4 cm; Wt 50.0 kg
[~2024-03-04 21:42] MED LIST changes: -CLOP75TA70 PO; +METF-370 PO
[2024-03-04 23:59] LABS: Basophils # (auto) 0 10 ^3/uL (0-0.2); Basophils % (auto) 0.7 % (0.0-2.0); Eosinophils # (auto) 0 10 ^3/uL (0-0.8); Eosinophils % (auto) 0.7 % (0.0-7.0); Hematocrit 35.9 % (36.0-46.0); Lymphocytes # (auto) 1.1 10 ^3/uL (0.4-5.4); Lymphocytes % (auto) 18.6 % (10.0-50.0); Mean Corpuscular Hgb Conc. 33.4 g/dL (32.0-36.0); Monocytes # (auto) 0.5 10 ^3/uL (0-1.3); Monocytes % (auto) 8.3 % (0.0-12.0); Neutrophils # (auto) 4.1 10 ^3/uL (1.6-8.6); Neutrophils % (auto) 71.7 % (37.0-80.0); Nucleated Red Blood Cells % 0.1 %; Platelet Count (auto) 143 10^3/uL (140-450); Red Blood Cells 4.27 10^6/uL (4.0-5.20); Red Cell Distribution Width 14.8 % (11.8-14.3); White Blood Cell 5.7 10^3/uL (4.4-10.8)
[2024-03-05 00:11] LABS: Alanine Aminotransferase 61 U/L (7-40); Albumin 4.1 g/dL (3.2-4.8); Alkaline Phosphatase 55 U/L (46-116); Anion Gap 9 (5-15); Aspartate Aminotransferase 62 U/L (13-40); BUN/Creatinine Ratio 17.9 (10.0-20.0); Bilirubin, Total 0.9 mg/dL (0.2-1.0); Blood Urea Nitrogen 24 mg/dL (9-23); Calcium 9.9 mg/dL (8.7-10.4); Carbon Dioxide 24 mmol/L (20-31); Chloride 98 mmol/L (98-107); Glucose 98 mg/dL (74-106); Lipase 60 U/L (12-53); Potassium 4.7 mmol/L (3.5-5.1); Sodium 131 mmol/L (136-145); Total Protein 6.6 g/dL (5.7-8.2)
[2024-03-05] MEDS: ONDANSETRON ODT 4 MG TAB PO ONE (01:18)
--- NOTE | 2024-03-05 03:22 | ED.PDOC ---
GI ASSESSMENT HPI Comments 79-year-old female brought in by daughter. Daughter states patient has been home on hospice. For the last three days patient was not been willing or wanting to eat. States patient tries to eat but then vomits. No fever no chills no diarrhea. Nothing makes it better, nothing makes it worse. Chief Complaint: Nausea/Vomiting Time Seen by MD: 23:08 Primary Care Provider: Dr. Harley Munoz Allergies: Coded Allergies: Ginkgo (Verified Allergy, Unknown, RASH, 01/07/23) Home Meds Active Scripts Furosemide (Lasix) 40 Mg Tab, 40 MG PO BID for 30 Days, #60 TAB 6 Refills Prov:GARCIAMARY ALICE Gonzalez DO 10/01/23 Apixaban Base (ELIQUIS) 2.5 Mg Tab, 2.5 MG PO BID for 30 Days, #60 TAB 6 Refills Prov:GARCIAVIRGILIOMARY ALICE T DO 10/01/23 Amiodarone HCl (Amiodarone HCl) 200 Mg Tab, 200 MG PO Q12HR for 30 Days, #60 TAB 3 Refills Prov:GARCIAVIRGILIO GonzalezMY DO 10/01/23 Isosorbide Dinitrate (Isosorbide Dinitrate) 40 Mg Tab, 40 MG PO DAILY, #90 TAB Prov:[facility] 06/10/23 Atorvastatin Calcium (Lipitor) 10 Mg Tab, 10 MG PO DAILY for 90 Days, #90 TAB Prov:[facility] 06/04/23 Sacubitril-Valsartan (Entresto 24-26 mg) 1 Tab Tab, 1 TAB PO BID for 90 Days, #180 TAB Prov:[facility] 06/04/23 Metoprolol Tartrate (Metoprolol Tartrate) 25 Mg Tab, 12.5 MG PO BID for 90 Days, #90 MG Prov:[facility] 06/04/23 Digoxin (Digoxin) 125 Mcg Tab, 125 MCG PO DAILY for 90 Days, #90 TAB Prov:[facility] 06/04/23 Reported Medications Metformin Hydrochloride (Metformin Hcl) 500 Mg Tab, 1 TAB PO BID 01/06/24 Spironolactone (Spironolactone) 50 Mg Tab, 40 MG PO DAILY, TAB 01/07/23 Mode of Arrival: EMS Past Medical History PAST MEDICAL HISTORY: AFIB, CHF, COPD, High Lipids, HTN, MA, Thyroid Surgical History: Denies all surgeries [employer] History: Denies all [employer]ENER Hx Family History Family History: Unobtainable Social History Smoker: Non-Smoker Alcohol: Denies ETOH Use Drugs: Denies Drug Use Lives In: Home Constitutional: reports: fatigue, weakness; denies: chills, diaphoresis, fever, malaise, sweats, others EENTM: denies: blurred vision, double vision, ear bleeding, ear discharge, ear drainage, ear pain, ear ringing, eye pain, eye redness, hearing loss, mouth pain, mouth swelling, nasal discharge, nose bleeding, nose congestion, nose pain, photophobia, tearing, throat pain, throat swelling, voice changes, others Respiratory: denies: cough, hemoptysis, orthopnea, SOB at rest, shortness of breath, SOB with excertion, stridor, wheezing, others Cardiovascular: denies: chest pain, dizzy spells, diaphoresis, Dyspnea on exertion, edema, irregular heart beat, left arm pain, lightheadedness, palpitations, PND, syncope, others Gastrointestinal: reports: nausea, vomiting; denies: abdomen distended, abdominal pain, blood streaked bowels, constipated, diarrhea, dysphagia, difficulty swallowing, hematemesis, poor appetite, poor fluid intake, rectal bleeding, rectal pain, others Genitourinary: denies: abnormal vagina bleeding, burning, dyspareunia, dysuria, flank pain, frequency, hematuria, incontinence, pain, , vagina discharge, urgency, others Neurological: denies: dizziness, fainting, headache, left sided numbness, left sided weakness, numbness, paresthesia, pre-existing deficit, right sided numbness, right sided weakness, seizure, speech problems, tingling, tremors, weakness, others Musculoskeletal: denies: back pain, gout, joint pain, joint swelling, muscle pain, muscle stiffness, neck pain, others Integumetry: denies: bruises, change in color, change in hair/nails, dryness, laceration, lesions, lumps, rash, wounds, others Allergic/Immunocompromised: denies: Difficulty Healing, Frequent Infections, Hives, Itching, others Physical Exam General Appearance: No Apparent Distress, Normal HEENT: Normal ENT Inspection, Pharynx Normal, TMs Normal Neck: Full Range of Motion, Non-Tender, Normal, Normal Inspection Respiratory: Chest Non-Tender, Lungs Clear, No Accessory Muscle Use, No Respiratory Distress, Normal Breath Sounds Cardiovascular: No Edema, No JVD, No Murmur, No Gallop, Normal Peripheral Pulses, Regular Rate/Rhythm Breast Exam: Deferred Gastrointestinal: No Organomegaly, Non Tender, No Pulsatile Mass, Normal Bowel Sounds, Soft Genitalia: Deferred Pelvic: Deferred Rectal: Deferred Extremities: Normal capillary refill, Non-tender Musculoskeletal : Apperance: Normal Neurologic: Alert, No Motor Deficits, Normal Affect, Normal Mood, No Sensory Deficits, NOT DONE Cerebellar Function: Normal, NOT DONE Reflexes: Normal Skin: Dry, Normal Color, Warm Lymphatic: No Adenopathy Was a procedure done? Was a procedure done?: No GI differential Dx Differential Diagnosis: Bowel Obstruction, Cholecystitis, Constipation, Other (Failure to thrive) X-Ray, Labs, Meds, VS Vital Signs Date Time Temp Pulse Resp B/P (MAP) Pulse Ox O2 Delivery O2 Flow Rate FiO2 03/04/24 23:06 Room Air* 0 21 03/04/24 21:49 98.1 63 16 121/49 (73) 94 Lab Test 03/04/24 23:45 Range/Units White Blood Count 5.7 4.4-10.8 10^3/uL Red Blood Count 4.27 4.0-5.20 10^6/uL Hemoglobin 12.0 L 12.2-16.2 g/dL Hematocrit 35.9 L 36.0-46.0 % Mean Corpuscular Volume 84.0 80.0-100.0 fL Mean Corpuscular Hemoglobin 28.0 28.0-32.0 pg Mean Corpuscular Hemoglobin Concent 33.4 32.0-36.0 g/dL Red Cell Distribution Width 14.8 H 11.8-14.3 % Platelet Count 143 140-450 10^3/uL Mean Platelet Volume 8.8 6.9-10.8 fL Neutrophils (%) (Auto) 71.7 37.0-80.0 % Lymphocytes (%) (Auto) 18.6 10.0-50.0 % Monocytes (%) (Auto) 8.3 0.0-12.0 % Eosinophils (%) (Auto) 0.7 0.0-7.0 % Basophils (%) (Auto) 0.7 0.0-2.0 % Neutrophils # (Auto) 4.1 1.6-8.6 10 ^3/uL Lymphocytes # (Auto) 1.1 0.4-5.4 10 ^3/uL Monocytes # (Auto) 0.5 0-1.3 10 ^3/uL Eosinophils # (Auto) 0 0-0.8 10 ^3/uL Basophils # (Auto) 0 0-0.2 10 ^3/uL Nucleated Red Blood Cells 0.1 % Sodium Level 131 L 136-145 mmol/L Potassium Level 4.7 3.5-5.1 mmol/L Chloride Level 98 98-107 mmol/L Carbon Dioxide Level 24 20-31 mmol/L Anion Gap 9 5-15 Blood Urea Nitrogen 24 H 9-23 mg/dL Creatinine 1.34 H 0.550-1.02 mg/dL Glomerular Filtration Rate Calc 41 >90 mL/min BUN/Creatinine Ratio 17.9 10.0-20.0 Serum Glucose 98 74-106 mg/dL Calcium Level 9.9 8.7-10.4 mg/dL Total Bilirubin 0.9 0.2-1.0 mg/dL Aspartate Amino Transferase (AST) 62 H 13-40 U/L Alanine Aminotransferase (ALT) 61 H 7-40 U/L Alkaline Phosphatase 55 46-116 U/L Total Protein 6.6 5.7-8.2 g/dL Albumin 4.1 3.2-4.8 g/dL Lipase 60 H 12-53 U/L Current Medications Medications (Trade) Dose Ordered Sig/Che Route Start Time Stop Time Status Last Admin Ondansetron HCl (Zofran Po) 4 mg ONCE ONCE PO 03/05/24 01:03 03/05/24 01:04 DC 03/05/24 01:18 X-Ray, Labs, Meds, VS Comment Imaging: X-rays and CT scans were reviewed and interpreted by this provider, imaging shows no fractures and no pathological disease. Pending radiology review. Laboratory: Labs reviewed and interpreted by this provider. No significant abnormalities noted. Patient has prior medical visits reviewed. Med reconciliation performed Vital signs reviewed Time of 1ST Reevaluation: 03:22 Reevaluation 1ST: Unchanged Patient Education/Counseling: Diagnosis, Treatment, Need For Follow Up (Patient advised to follow-up in the emergency room in the next 24 to 48 hours if symptoms do not improve. Advised follow-up with PCP in the next 3 to 5 days. Patient verbalized understanding. ) Family Education/Counseling: Diagnosis Departure 1 Departure Time of Disposition: 03:22 Impression: Primary Impression: CHF (congestive heart failure) Qualified Codes: I50.22 - Chronic systolic (congestive) heart failure Additional Impressions: Acute abdominal pain Generalized weakness Thyroid mass Disposition: 01 HOME / SELF CARE / HOMELESS Condition: Fair Discharged With: Self Critical Care Note Critical Care Time?: No Stability Stability form required: No Heart Score Heart Score: Heart Score Response (Comments) Value History N/A 0 EKG N/A 0 Age N/A 0 Risk Factors N/A 0 Troponin N/A 0 Total 0 SAM SANABRIA Mar 05, 2024 03:22
--- NOTE | 2024-03-05 04:08 | DVH ---
Exam: CT CT AB PEL WO CON-NO ORAL OR IV History: n/v Comparison Study: None available at time of dictation. TECHNIQUE: Axial images were obtained and reformatted in coronal and sagittal planes. All CT scans at this medical facility are performed using dose modulation techniques as appropriate t o a performed exam including the following: Automated exposure control was utilized; adjustment of th e MA and/or KV according to patient size; and use of iterative reconstruction technique. CT Dose: CTDI volume is 8.22 mGy. Dose-length product is 397.52 mGy*cm FINDINGS: Lower Chest: Moderate cardiomegaly. No focal pulmonary opacity. Hepatobiliary: Several small hypodense lesions are seen in the right hepatic lobe that are too small to characterize. Subcentimeter calcified granuloma is seen in the right lobe. Spleen: Unremarkable. Pancreas: Unremarkable. Adrenal Glands: Unremarkable. tract: The kidneys are normal in size bilaterally without hydronephrosis . A subcentimeter nonobst ructing stone is seen in the lower pole of the right kidney. Areas of parenchymal scarring are seen i n the upper pole of the left kidney. Several subcentimeter bilateral renal cysts are noted. The uri nary bladder is unremarkable. GI tract: The stomach is grossly normal in appearance. No evidence of small bowel obstruction. Mild mural thickening of the ascending and proximal transverse colon noted without significant adjacent pe ricolonic inflammation. The appendix is normal. Lymphatics: No mesenteric, retroperitoneal or periportal lymphadenopathy. Vasculature: Aorta is normal in caliber. Scattered calcified plaques are noted. Pelvic Organs: The uterus is unremarkable. A 9 cm unilocular cyst is seen in the left side of the pel vis likely adnexal in origin. A 1 cm coarse calcification in the right side of the pelvis likely a be nign dystrophic adnexal calcification. Bones/soft tissues: No acute abnormality. Multilevel degenerative changes of the lumbar spine noted. Other: None. Findings: Lung Bases: No acute or significant lung base finding. Normal heart size. No pleural or pericardial effusion. Liver: The liver is normal in size. No focal lesions. Gallbladder and Biliary Tree: Unremarkable Spleen: Unremarkable Pancreas: The pancreas is grossly normal in appearance. Adrenal Glands: Unremarkable Kidneys: Kidneys are grossly normal without calculi or hydronephrosis. Bladder: Grossly unremarkable for degree of distention. Bowel: The stomach is grossly normal in appearance. Small bowel and colon are normal in caliber and d istribution. The appendix is not visualized; however, no secondary findings of acute appendicitis id entified. Ascites: Absent Lymphadenopathy: No mesenteric, retroperitoneal or periportal lymphadenopathy. Abdominal Wall and Mesentery: Unremarkable. Vasculature: The visualized abdominal aorta is normal in size and caliber. Evaluation of abdominal a nd pelvic vessels is limited due to lack of intravenous contrast. Pelvic Organs: Unremarkable Musculoskeletal: No aggressive focal bony lesions, acute fractures or dislocation. Soft tissues: Unremarkable IMPRESSION: 1. Findings suggestive of mild ascending and transverse colitis. 2. Large, 9 cm left adnexal cyst. This should be further evaluated with pelvic sonogram and followed up to ensure stability and benignity. 3. Hypodense hepatic lesions, too small to characterize. Recommend correlation by abdominal ultrasou nd. 4. Subcentimeter nonobstructing right renal stone. 5. Atherosclerotic disease.
[2024-03-05 05:29] LABS: Urine Bacteria FEW /hpf (None Seen); Urine Blood Negative /uL (Negative); Urine Clarity Clear (Clear); Urine Color Light-Yellow (Yellow); Urine Protein, UAD Negative (Negative); Urine Specific Gravity 1.007 (1.001-1.035); Urine Urobilinogen Normal (Negative); Urine WBC 17 /hpf (0 - 5); Urine WBC Clumps PRESENT /hpf (None Seen)
[2024-03-05] MEDS ORDERED: METR-344 PO (05:43)
[2024-03-05] MEDS ORDERED: LEVO500T91 PO (05:43)
[2024-03-05] MEDS: metroNIDAZOLE 500MG/100ML 100 ML IV ONE (06:00)
[2024-03-05] MEDS: levoFLOXacin 500MG 100 ML IV ONE (06:35)
[2024-03-05 08:00] VITALS: PULSE 18; RESP 15; O2SAT 92
[2024-03-05 08:50] VITALS: TEMP 98; O2SAT 93
[2024-03-05 11:21] VITALS: BP 94/31; PULSE 65; RESP 17
== END 2024-03-05 12:39 | disposition home or self-care (01) ==
LOC: EDBD 21:42 → ER 21:42
DX: I11.0 Hypertensive heart disease with heart failure (principal); I50.89 Other heart failure; R10.9 Unspecified abdominal pain; R53.1 Weakness; E07.9 Disorder of thyroid, unspecified; J44.9 Chronic obstructive pulmonary disease, unspecified; E78.5 Hyperlipidemia, unspecified; Z88.8 Allergy status to other drugs, medicaments and biological substances; Z79.899 Other long term (current) drug therapy
CPT/HCPCS: 36415; 74176; 80053; 81001; 83690; 85025; 96365; 96367; 99285; J1956; J3490; Q0162